=== PATIENT | female | born 1985 | race Caucasian/White ===

== ENCOUNTER → 2016-04-10 | Outpatient (CLI) | payer OTHER ==
--- NOTE | 2016-04-10 15:44 | US ---
Endovaginal Pelvic Sonography Clinical History: 30-year-old female for evaluation of an intrauterine device. ICD-10 Diagnostic Code: Z30.431. Comparison Study: Pelvic sonography, dated October 31, 2015. Technique: Endovaginal pelvic sonography was performed. Color Doppler and spectral Doppler were used. Findings: The uterus is normal in size, shape, and position, measuring 7.3 x 3.9 x 5.0 cm. The endome trial thickness is 5.1 mm. The echogenic intrauterine device is appropriately positioned, terminating at the fundal aspect of the endometrium with the sidearms deployed. There is no focal myometrial abn ormality. The right ovary is normal, measuring 2.7 x 2.3 x 1.8 cm. The left ovary measures 2.5 x 2.2 x 1.2 cm. Intraovarian vascular flow is documented. There is no solid or cystic adnexal mass, free fl uid, or torsion. Impression: Appropriate positioning of the intrauterine device.
== END ==
LOC: FIMAGING 13:53
PROVIDERS: ATTEND Advanced Practice Midwife
DX: Z30.431 Encounter for routine checking of intrauterine contraceptive device (principal)